=== PATIENT | male | born 2000 | race Two or more races ===

== ENCOUNTER 2021-11-13 13:53 | Emergency (ER) | payer OTHER ==
[~2021-11-13] VITALS: Ht 172.7 cm; Wt 58.1 kg
[2021-11-13 15:24] VITALS: BP 133/92
[2021-11-13] MEDS ORDERED: IBUPROFEN 800 MG TAB PO ONE (16:30)
[2021-11-13] MEDS ORDERED: IBUP800T27 PO (16:53)
[2021-11-13] MEDS ORDERED: METH500T22 PO (16:53)
== END 2021-11-13 17:06 | disposition home or self-care (01) ==
LOC: ER 13:53
DX: S83.91XA Sprain of unspecified site of right knee, initial encounter (principal); S39.012A Strain of muscle, fascia and tendon of lower back, initial encounter; V43.62XA Car passenger injured in collision with other type car in traffic accident, initial encounter; Y93.89 Activity, other specified; Y92.410 Unspecified street and highway as the place of occurrence of the external cause; Y99.8 Other external cause status
CPT/HCPCS: 72100; 73562